=== PATIENT | female | born 1955 | race Caucasian/White ===

== ENCOUNTER 2017-08-09 13:05 | Inpatient (IN) | payer MEDICARE, MEDICAID ==
[~2017-08-09] VITALS: Ht 147.3 cm; Wt 74.4 kg
[~2017-08-09 13:05] MED LIST: ADVIR; BUSPIRONE; CELEXA; KLONOPIN; LIPITOR; PREMPRO; RELPAX; TOPAMAX; TYLENOL; [UNRECOGNIZED DRUG - OTHER]
[2017-08-09 13:32] VITALS: BP 125/92
[2017-08-09] MEDS ORDERED: HALOPERIDOL 5 MG TABLET PO PRN (13:45)
[2017-08-09] MEDS ORDERED: ZOLPIDEM TARTRATE 10 MG TABLET PO PRN (13:45)
[2017-08-09] MEDS ORDERED: OMEP20 PO (14:32)
[2017-08-09] MEDS ORDERED: LEVO75 PO (14:32)
[2017-08-09] MEDS ORDERED: WHEA1POW2 PO (14:32)
[2017-08-09] MEDS ORDERED: BUSP10TA23 PO (14:32)
[2017-08-09] MEDS ORDERED: BACL10TA PO (14:32)
[2017-08-09] MEDS ORDERED: FENO160 PO (14:32)
[2017-08-09] MEDS ORDERED: CLON.5 PO (14:32)
[2017-08-09] MEDS ORDERED: CITA20TA9 PO (14:32)
[2017-08-09] MEDS ORDERED: AMIT50TA3 PO (14:32)
[2017-08-09] MEDS ORDERED: DICY20 PO (14:32)
[2017-08-09 14:56] VITALS: BP 122/62
[2017-08-09 16:17] VITALS: BP 119/65
[2017-08-09] MEDS ORDERED: PNEUMOCOCCAL VACCINE POLYVALENT 0.5 ML VIAL [PPSV23] IM ONE (16:30)
[2017-08-09] MEDS: LORazepam 1 MG TABLET PO PRN (19:14)
[2017-08-09] MEDS ORDERED: MAGNESIUM HYDROXIDE SUSPENSION 30 ML UDCUP PO PRN (19:15)
[2017-08-09] MEDS ORDERED: MAG HYDROX/AL HYDROX/SIMETH ES 30 ML SUSPENSION UDCUP PO PRN (19:15)
[2017-08-09] MEDS ORDERED: CloNIDine HCL 0.1 MG TABLET PO PRN (19:15)
[2017-08-09] MEDS ORDERED: LOPERAMIDE HCL 2 MG CAPSULE PO PRN (19:15)
[2017-08-09] MEDS ORDERED: BACITRACIN 28.4 GM OINTMENT TP PRN (19:15)
[2017-08-09] MEDS ORDERED: PETROLATUM,WHITE 71 GM JELLY TP PRN (19:15)
[2017-08-09] MEDS ORDERED: ALBUTEROL SULFATE HFA 90 MCG/PUFF 8 GM INHALER IH PRN (19:15)
[2017-08-09] MEDS: ACETAMINOPHEN 325 MG TABLET PO PRN (19:48)
[2017-08-10] VITALS (7 sets, daily range): BP systolic 107–143; BP diastolic 61–77
[2017-08-10] MEDS ORDERED: LEVOTHYROXINE SODIUM 75 MCG TABLET PO SCH (06:30)
[2017-08-10] MEDS: OMEPRAZOLE 20 MG CAPSULE PO SCH (08:27)
[2017-08-10] MEDS: DICYCLOMINE HCL 20 MG TABLET PO SCH (08:27)
[2017-08-10] MEDS: BACLOFEN 10 MG TABLET PO SCH ×3 (08:27→16:31)
[2017-08-10] MEDS: FENOFIBRATE 160 MG TABLET PO SCH (08:27)
[2017-08-10] MEDS: LORazepam 1 MG TABLET PO PRN (08:47)
[2017-08-10] MEDS ORDERED: AMITRIPTYLINE HCL 50 MG TABLET PO SCH (09:00)
[2017-08-10 09:49] LABS: BASOPHILS % (AUTO) 0.3 % (0.0-2.0); EOSINOPHILS % (AUTO) 1.7 % (1.0-6.0); HEMATOCRIT 34.8 % (36-46); HEMOGLOBIN 12.3 g/dL (12.0-16.0); LYMPHOCYTES # (AUTO) 2.2 K/uL (1.0-4.8); MEAN CORPUSCULAR HEMOGLOBIN 35.6 pg (26.0-34.0); MEAN CORPUSCULAR HGB CONC 35.3 G/dL (31.0-37.0); MEAN CORPUSCULAR VOLUME 101 fL (80-100); MONOCYTES # (AUTO) 0.6 K/uL (0.1-1.0); MONOCYTES % (AUTO) 11.2 % (2.0-9.0); NEUTROPHILS # (AUTO) 2.6 K/uL (1.8-7.7); NEUTROPHILS % (AUTO) 46.8 % (40.0-70.0); PLATELET COUNT (AUTO) 314 K/uL (150-450); RED BLOOD CELL COUNT(AUTO) 3.46 MIL/uL (4.00-5.20); RED CELL DISTRIBUTION WIDTH 13.2 % (11.5-14.5)
[2017-08-10 09:59] LABS: HEMOGLOBIN A1C 5.4 % (4.5-6.2)
[2017-08-10 10:32] LABS: ALANINE AMINOTRANSFERASE 45 U/L (12-78); ALBUMIN 3.5 g/dL (3.4-5.0); ALKALINE PHOSPHATASE 85 U/L (46-116); ANION GAP 9 mmol/L (8-16); ASPARTATE AMINOTRANSFERASE 24 U/L (15-37); BILIRUBIN,TOTAL 0.2 mg/dL (0.1-1.0); CARBON DIOXIDE 26 mmol/L (22-29); CHLORIDE 103 mmol/L (98-107); CHOL/HDL RATIO 3.7 (3.9-5.7); CHOLESTEROL 180 mg/dL (131-200); CREATININE 0.68 mg/dL (0.60-1.30); FREE T4 (FREE THYROXINE) 0.92 ng/dL (0.76-1.46); GLOMERULAR FILTR. RATE CALC > 60 mL/min (>60); GLUCOSE,RANDOM 90 mg/dL (70-110); HDL CHOLESTEROL 49 mg/dL (40-60); LDL CHOL (CALC.) 107 mg/dL (0-130); POTASSIUM 3.9 mmol/L (3.5-5.1); SODIUM SERUM 138 mmol/L (136-145); THYROID STIMULATING HORMONE 1.97 uIU/mL (0.36-3.74); TOTAL PROTEIN, SERUM 7.3 g/dL (6.4-8.2); TRIGLYCERIDES 121 mg/dL (15-150); UREA NITROGEN, BLOOD 17 mg/dL (7-18)
[2017-08-10] MEDS: ACETAMINOPHEN 325 MG TABLET PO PRN ×2 (15:57→21:46)
[2017-08-10] MEDS: BusPIRone HCL 10 MG TABLET PO SCH (16:30)
[2017-08-10] MEDS: AMITRIPTYLINE HCL 50 MG TABLET PO SCH (21:37)
[2017-08-10] MEDS: ONDANSETRON HCL 4 MG TABLET PO PRN (21:46)
[2017-08-11] VITALS (7 sets, daily range): BP systolic 108–127; BP diastolic 64–73
[2017-08-11] MEDS: LEVOTHYROXINE SODIUM 25 MCG TABLET PO SCH (06:07)
[2017-08-11] MEDS: ACETAMINOPHEN 325 MG TABLET PO PRN ×2 (06:18→20:19)
[2017-08-11] MEDS: BusPIRone HCL 10 MG TABLET PO SCH ×3 (08:02→16:43)
[2017-08-11] MEDS: DICYCLOMINE HCL 20 MG TABLET PO SCH (08:03)
[2017-08-11] MEDS: OMEPRAZOLE 20 MG CAPSULE PO SCH (08:03)
[2017-08-11] MEDS: BACLOFEN 10 MG TABLET PO SCH ×4 (08:03→18:14)
[2017-08-11] MEDS: CITALOPRAM HYDROBROMIDE 20 MG TABLET PO SCH (08:03)
[2017-08-11] MEDS: FENOFIBRATE 160 MG TABLET PO SCH (08:03)
[2017-08-11] MEDS: IBUPROFEN 600 MG TABLET PO PRN ×2 (10:59→22:20)
[2017-08-11] MEDS: ONDANSETRON HCL 4 MG TABLET PO PRN (14:59)
[2017-08-11] MEDS: AMITRIPTYLINE HCL 50 MG TABLET PO SCH (20:37)
[2017-08-12] MEDS: LEVOTHYROXINE SODIUM 25 MCG TABLET PO SCH (05:51)
[2017-08-12] MEDS: LORazepam 1 MG TABLET PO PRN (05:52)
[2017-08-12 05:53] VITALS: BP 119/77
[2017-08-12] MEDS: OMEPRAZOLE 20 MG CAPSULE PO SCH (08:34)
[2017-08-12] MEDS: FENOFIBRATE 160 MG TABLET PO SCH (08:34)
[2017-08-12] MEDS: CITALOPRAM HYDROBROMIDE 20 MG TABLET PO SCH (08:34)
[2017-08-12] MEDS: DICYCLOMINE HCL 20 MG TABLET PO SCH (08:34)
[2017-08-12] MEDS: BusPIRone HCL 10 MG TABLET PO SCH ×3 (08:34→16:59)
[2017-08-12] MEDS: BACLOFEN 10 MG TABLET PO SCH ×3 (08:44→17:00)
[2017-08-12 08:54] VITALS: BP 132/73
[2017-08-12] MEDS: ACETAMINOPHEN 325 MG TABLET PO PRN (09:34)
[2017-08-12 11:32] VITALS: BP 126/72
[2017-08-12] MEDS: IBUPROFEN 600 MG TABLET PO PRN (11:32)
[2017-08-12] MEDS: ClonazePAM 0.5 MG TABLET PO SCH ×2 (12:38→16:59)
[2017-08-12 16:13] VITALS: BP 136/70
[2017-08-12] MEDS: AMITRIPTYLINE HCL 50 MG TABLET PO SCH (20:35)
[2017-08-13 06:11] VITALS: BP 114/62
[2017-08-13] MEDS: LEVOTHYROXINE SODIUM 25 MCG TABLET PO SCH (06:39)
[2017-08-13] MEDS: CITALOPRAM HYDROBROMIDE 20 MG TABLET PO SCH (08:12)
[2017-08-13] MEDS: OMEPRAZOLE 20 MG CAPSULE PO SCH (08:12)
[2017-08-13] MEDS: ClonazePAM 0.5 MG TABLET PO SCH ×3 (08:12→16:56)
[2017-08-13] MEDS: FENOFIBRATE 160 MG TABLET PO SCH (08:12)
[2017-08-13] MEDS: BusPIRone HCL 10 MG TABLET PO SCH ×3 (08:12→16:56)
[2017-08-13] MEDS: DICYCLOMINE HCL 20 MG TABLET PO SCH (08:12)
[2017-08-13] MEDS: BACLOFEN 10 MG TABLET PO SCH ×3 (08:16→16:58)
[2017-08-13 08:18] VITALS: BP 127/88
[2017-08-13] MEDS: ACETAMINOPHEN 325 MG TABLET PO PRN (08:18)
[2017-08-13 12:37] VITALS: BP 125/88
[2017-08-13] MEDS: IBUPROFEN 600 MG TABLET PO PRN (12:37)
[2017-08-13] MEDS ORDERED: SUMAtriptan SUCCINATE 25 MG TABLET PO PRN (16:00)
[2017-08-13 17:20] VITALS: BP 136/78
[2017-08-13] MEDS: AMITRIPTYLINE HCL 50 MG TABLET PO SCH (20:15)
[2017-08-14 00:07] VITALS: BP 120/86
[2017-08-14] MEDS: LEVOTHYROXINE SODIUM 25 MCG TABLET PO SCH (05:55)
[2017-08-14 08:24] VITALS: BP 118/69
[2017-08-14] MEDS: ClonazePAM 0.5 MG TABLET PO SCH ×3 (08:56→16:21)
[2017-08-14] MEDS: FENOFIBRATE 160 MG TABLET PO SCH (08:56)
[2017-08-14] MEDS: BACLOFEN 10 MG TABLET PO SCH ×3 (08:57→16:24)
[2017-08-14] MEDS: CITALOPRAM HYDROBROMIDE 20 MG TABLET PO SCH (08:57)
[2017-08-14] MEDS: DICYCLOMINE HCL 20 MG TABLET PO SCH (08:57)
[2017-08-14] MEDS: BusPIRone HCL 10 MG TABLET PO SCH ×3 (08:57→16:21)
[2017-08-14] MEDS: OMEPRAZOLE 20 MG CAPSULE PO SCH (08:57)
[2017-08-14 16:12] VITALS: BP 114/74
[2017-08-14] MEDS: AMITRIPTYLINE HCL 50 MG TABLET PO SCH (20:21)
[2017-08-14 20:28] VITALS: BP 118/72
[2017-08-15] VITALS: BP 105/62
[2017-08-15] MEDS: LEVOTHYROXINE SODIUM 25 MCG TABLET PO SCH (06:06)
[2017-08-15 08:43] VITALS: BP 124/64
[2017-08-15] MEDS: OMEPRAZOLE 20 MG CAPSULE PO SCH (10:07)
[2017-08-15] MEDS: CITALOPRAM HYDROBROMIDE 20 MG TABLET PO SCH (10:07)
[2017-08-15] MEDS: ClonazePAM 0.5 MG TABLET PO SCH ×3 (10:07→17:12)
[2017-08-15] MEDS: BusPIRone HCL 10 MG TABLET PO SCH ×3 (10:08→17:13)
[2017-08-15] MEDS: DICYCLOMINE HCL 20 MG TABLET PO SCH (10:09)
[2017-08-15] MEDS: FENOFIBRATE 160 MG TABLET PO SCH (10:09)
[2017-08-15] MEDS: BACLOFEN 10 MG TABLET PO SCH ×3 (10:09→17:13)
[2017-08-15 16:26] VITALS: BP 132/79
[2017-08-15] MEDS: AMITRIPTYLINE HCL 50 MG TABLET PO SCH (20:38)
[2017-08-15] MEDS: BENZOCAINE/MENTHOL LOZENGE MM PRN (20:39)
[2017-08-15] MEDS: ACETAMINOPHEN 325 MG TABLET PO PRN (20:39)
[2017-08-16 00:13] VITALS: BP 110/76
[2017-08-16] MEDS: LEVOTHYROXINE SODIUM 25 MCG TABLET PO SCH (06:15)
[2017-08-16] MEDS: BusPIRone HCL 10 MG TABLET PO SCH ×3 (08:17→17:07)
[2017-08-16] MEDS: ClonazePAM 0.5 MG TABLET PO SCH ×3 (08:17→17:07)
[2017-08-16] MEDS: CITALOPRAM HYDROBROMIDE 20 MG TABLET PO SCH (08:17)
[2017-08-16] MEDS: BACLOFEN 10 MG TABLET PO SCH ×3 (08:17→17:00)
[2017-08-16] MEDS: DICYCLOMINE HCL 20 MG TABLET PO SCH (08:17)
[2017-08-16] MEDS: OMEPRAZOLE 20 MG CAPSULE PO SCH (08:17)
[2017-08-16] MEDS: FENOFIBRATE 160 MG TABLET PO SCH (08:17)
[2017-08-16 08:41] VITALS: BP 121/60
[2017-08-16 16:14] VITALS: BP 142/72
[2017-08-16] MEDS: AMITRIPTYLINE HCL 50 MG TABLET PO SCH (20:25)
[2017-08-16] MEDS: BENZOCAINE/MENTHOL LOZENGE MM PRN (20:25)
[2017-08-17 01:21] VITALS: BP 104/62
[2017-08-17] MEDS: LEVOTHYROXINE SODIUM 25 MCG TABLET PO SCH (06:27)
[2017-08-17 08:00] VITALS: BP 109/63
[2017-08-17] MEDS: CITALOPRAM HYDROBROMIDE 20 MG TABLET PO SCH (08:37)
[2017-08-17] MEDS: DICYCLOMINE HCL 20 MG TABLET PO SCH (08:37)
[2017-08-17] MEDS: OMEPRAZOLE 20 MG CAPSULE PO SCH (08:37)
[2017-08-17] MEDS: FENOFIBRATE 160 MG TABLET PO SCH (08:37)
[2017-08-17] MEDS: BusPIRone HCL 10 MG TABLET PO SCH ×3 (08:37→16:38)
[2017-08-17] MEDS: ClonazePAM 0.5 MG TABLET PO SCH ×3 (08:37→16:38)
[2017-08-17] MEDS: BACLOFEN 10 MG TABLET PO SCH ×3 (08:40→16:38)
[2017-08-17] MEDS ORDERED: CLON.5 PO (16:17)
[2017-08-17] MEDS ORDERED: CITA40TA14 PO (16:17)
[2017-08-17] MEDS ORDERED: BUSP10TA23 PO (16:17)
[2017-08-17] MEDS ORDERED: AMIT100T2 PO (16:17)
[2017-08-17 16:29] VITALS: BP 134/73
[2017-08-17] MEDS ORDERED: LEVO25TA9 PO (16:35)
[2017-08-17] MEDS ORDERED: CLON0.5T4 PO (16:40)
== END 2017-08-17 18:24 | disposition home or self-care (01) | DRG 885 ==
LOC: B2X 13:46
PROC: 3E0234Z Introduction of Serum, Toxoid and Vaccine into Muscle, Percutaneous Approach (ICD-10-PCS; principal; 2017-08-09)
DX: F33.2 Major depressive disorder, recurrent severe without psychotic features (principal); R45.851 Suicidal ideations; E03.9 Hypothyroidism, unspecified; E66.9 Obesity, unspecified; E78.5 Hyperlipidemia, unspecified; F41.9 Anxiety disorder, unspecified; M54.5 Low back pain; G47.00 Insomnia, unspecified; R26.9 Unspecified abnormalities of gait and mobility; J44.9 Chronic obstructive pulmonary disease, unspecified; K21.9 Gastro-esophageal reflux disease without esophagitis; N95.1 Menopausal and female climacteric states; Z79.899 Other long term (current) drug therapy; Z85.038 Personal history of other malignant neoplasm of large intestine; Z91.5 Personal history of self-harm; Z68.34 Body mass index [BMI] 34.0-34.9, adult; Z23 Encounter for immunization; Z88.5 Allergy status to narcotic agent
CPT/HCPCS: 83036; 84439; 84443; 90471; Q0162

== ENCOUNTER 2017-08-10 17:05 | Emergency (ER) | payer MEDICARE, MEDICAID ==
[~2017-08-10] VITALS: Ht 147.3 cm; Wt 72.7 kg
[~2017-08-10 17:05] MED LIST changes: -ADVIR; +AMIT50TA3 PO; +BACL10TA PO; +BUSP10TA23 PO; -BUSPIRONE; -CELEXA; +CITA20TA9 PO; +CLON.5 PO; +DICY20 PO; +FENO160 PO; -KLONOPIN; +LEVO75 PO; -LIPITOR; +OMEP20 PO; -PREMPRO; -RELPAX; -TOPAMAX; -TYLENOL; +WHEA1POW2 PO; -[UNRECOGNIZED DRUG - OTHER]
[2017-08-10 18:06] LABS: BASOPHILS % (AUTO) 0.3 % (0.0-2.0); EOSINOPHILS % (AUTO) 0.5 % (1.0-6.0); HEMATOCRIT 36.3 % (36-46); HEMOGLOBIN 12.8 g/dL (12.0-16.0); LYMPHOCYTES # (AUTO) 2.3 K/uL (1.0-4.8); LYMPHOCYTES % (AUTO) 24.3 % (22.0-44.0); MEAN CORPUSCULAR HEMOGLOBIN 35.6 pg (26.0-34.0); MEAN CORPUSCULAR HGB CONC 35.3 G/dL (31.0-37.0); MEAN CORPUSCULAR VOLUME 101 fL (80-100); MONOCYTES # (AUTO) 0.6 K/uL (0.1-1.0); MONOCYTES % (AUTO) 6.1 % (2.0-9.0); NEUTROPHILS # (AUTO) 6.4 K/uL (1.8-7.7); NEUTROPHILS % (AUTO) 68.8 % (40.0-70.0); PLATELET COUNT (AUTO) 339 K/uL (150-450); RED CELL DISTRIBUTION WIDTH 12.9 % (11.5-14.5)
[2017-08-10 18:29] LABS: ANION GAP 8 mmol/L (8-16); CALCIUM, TOTAL 9.5 mg/dL (8.8-10.5); CARBON DIOXIDE 29 mmol/L (22-29); CHLORIDE 99 mmol/L (98-107); CREATININE 0.81 mg/dL (0.60-1.30); GLOMERULAR FILTR. RATE CALC > 60 mL/min (>60); GLUCOSE,RANDOM 122 mg/dL (70-110); POTASSIUM 4.4 mmol/L (3.5-5.1); SODIUM SERUM 136 mmol/L (136-145); UREA NITROGEN, BLOOD 16 mg/dL (7-18)
[2017-08-10 18:35] LABS: B-TYPE NATRIURETIC PEPTIDE 13 pg/mL (0-100)
[2017-08-10 18:36] LABS: ALANINE AMINOTRANSFERASE 45 U/L (12-78); ALBUMIN 4.1 g/dL (3.4-5.0); ALKALINE PHOSPHATASE 97 U/L (46-116); ASPARTATE AMINOTRANSFERASE 31 U/L (15-37); BILIRUBIN,TOTAL 0.2 mg/dL (0.1-1.0); CREATINE KINASE, TOTAL 39 U/L (26-192)
[2017-08-10 19:19] LABS: BILIRUBIN,URINE NEGATIVE (NEGATIVE); GLUCOSE, URINE (UA) NEGATIVE (NEGATIVE); KETONES,URINE NEGATIVE (NEGATIVE); LEUKOCYTE ESTERASE ,URINE SMALL (NEGATIVE); NITRATE,URINE NEGATIVE (NEGATIVE); OCCULT BLOOD,URINE MODERATE (NEGATIVE); PH,URINE 7.5 (5.0-8.0); PROTEIN,URINE NEGATIVE (NEGATIVE); UROBILINOGEN,URINE 0.2 mg/dL (<=1.0)
[2017-08-10 20:02] LABS: APPEARANCE,URINE HAZY (CLEAR)
[2017-08-10 20:05] LABS: BACTERIA,URINE Rare /HPF (None Seen); SQUAMOUS EPITHELIAL CELL,UR Moderate /LPF (None Seen)
[2017-08-10 20:15] VITALS: BP 138/83
== END 2017-08-10 21:13 | disposition home or self-care (01) ==
LOC: EMS 17:07
DX: S50.311A Abrasion of right elbow, initial encounter (principal); R42 Dizziness and giddiness; R11.2 Nausea with vomiting, unspecified; R51 Headache; M54.2 Cervicalgia; J45.909 Unspecified asthma, uncomplicated; K21.9 Gastro-esophageal reflux disease without esophagitis; E78.00 Pure hypercholesterolemia, unspecified; G43.909 Migraine, unspecified, not intractable, without status migrainosus; E03.9 Hypothyroidism, unspecified; Z88.5 Allergy status to narcotic agent; Z88.8 Allergy status to other drugs, medicaments and biological substances; W19.XXXA Unspecified fall, initial encounter; Y93.89 Activity, other specified; Y92.89 Other specified places as the place of occurrence of the external cause; Y99.8 Other external cause status
CPT/HCPCS: 87086; 93005; 99285

== ENCOUNTER 2017-09-12 15:14 | Inpatient (IN) | payer MEDICARE, MEDICAID ==
[~2017-09-12] VITALS: Ht 149.9 cm; Wt 74.0 kg
[~2017-09-12 15:14] MED LIST changes: +AMIT100T2 PO; +CITA-106 PO; -CITA20TA9 PO; +CITA40TA14 PO; +CLON0.5T4 PO; +LEVO25TA9 PO; -LEVO75 PO; -WHEA1POW2 PO
[2017-09-12 15:33] LABS: BASOPHILS % (AUTO) 0.4 % (0.0-2.0); EOSINOPHILS % (AUTO) 1.4 % (1.0-6.0); HEMATOCRIT 34.1 % (36-46); LYMPHOCYTES # (AUTO) 2.5 K/uL (1.0-4.8); LYMPHOCYTES % (AUTO) 43.6 % (22.0-44.0); MEAN CORPUSCULAR HEMOGLOBIN 35.3 pg (26.0-34.0); MEAN CORPUSCULAR VOLUME 101 fL (80-100); MONOCYTES # (AUTO) 0.6 K/uL (0.1-1.0); MONOCYTES % (AUTO) 10.6 % (2.0-9.0); NEUTROPHILS # (AUTO) 2.5 K/uL (1.8-7.7); PLATELET COUNT (AUTO) 319 K/uL (150-450); RED BLOOD CELL COUNT(AUTO) 3.39 MIL/uL (4.00-5.20); RED CELL DISTRIBUTION WIDTH 13.1 % (11.5-14.5)
[2017-09-12 15:45] LABS: ANION GAP 7 mmol/L (8-16); CALCIUM, TOTAL 9.2 mg/dL (8.8-10.5); CARBON DIOXIDE 29 mmol/L (22-29); CHLORIDE 104 mmol/L (98-107); GLOMERULAR FILTR. RATE CALC > 60 mL/min (>60); GLUCOSE,RANDOM 88 mg/dL (70-110); POTASSIUM 4.3 mmol/L (3.5-5.1); SODIUM SERUM 140 mmol/L (136-145); UREA NITROGEN, BLOOD 17 mg/dL (7-18)
[2017-09-12 15:52] LABS: ALANINE AMINOTRANSFERASE 42 U/L (12-78); ALBUMIN 3.7 g/dL (3.4-5.0); ALKALINE PHOSPHATASE 76 U/L (46-116); ASPARTATE AMINOTRANSFERASE 22 U/L (15-37); BILIRUBIN,TOTAL 0.4 mg/dL (0.1-1.0); TOTAL PROTEIN, SERUM 7.3 g/dL (6.4-8.2)
[2017-09-12 16:04] LABS: ACETAMINOPHEN < 2 mcg/mL (10-30)
[2017-09-12 16:09] LABS: SALICYLATE 0.8 mg/dL (2.8-20.0)
[2017-09-12] MEDS ORDERED: TUBERCULIN, PURIFIED PROTEIN DERIVATIVE 5 TU/0.1 ML SYG ID ONE (16:45)
[2017-09-12] MEDS ORDERED: GuaiFENesin/D-METHORPHAN [SUGAR-FREE] 200-20MG/10 ML SYRUP UDCUP PO PRN (16:45)
[2017-09-12] MEDS ORDERED: HydrOXYzine PAMOATE 50 MG CAPSULE PO PRN (16:45)
[2017-09-12] MEDS ORDERED: ACETAMINOPHEN 325 MG TABLET PO PRN (16:45)
[2017-09-12] MEDS ORDERED: HALOPERIDOL 5 MG TABLET PO PRN (16:45)
[2017-09-12] MEDS ORDERED: PROMETHAZINE HCL 25 MG TABLET PO PRN (16:45)
[2017-09-12] MEDS ORDERED: LORazepam 2 MG TABLET PO PRN (16:45)
[2017-09-12] MEDS ORDERED: MAG HYDROX/AL HYDROX/SIMETH ES 30 ML SUSPENSION UDCUP PO PRN (16:45)
[2017-09-12] MEDS ORDERED: MAGNESIUM HYDROXIDE SUSPENSION 30 ML UDCUP PO PRN (16:45)
[2017-09-12] MEDS ORDERED: LOPERAMIDE HCL 2 MG CAPSULE PO PRN (16:45)
[2017-09-12 20:15] VITALS: BP 110/68
[2017-09-12] MEDS: THIAMINE HCL 100 MG TABLET PO SCH (20:58)
[2017-09-12] MEDS: GABAPENTIN 400 MG CAPSULE PO SCH (20:58)
[2017-09-13] MEDS: LEVOTHYROXINE SODIUM 25 MCG TABLET PO SCH (06:11)
[2017-09-13 06:52] VITALS: BP 126/82
[2017-09-13 08:36] VITALS: BP 111/67
[2017-09-13 08:39] LABS: BASOPHILS % (AUTO) 0.2 % (0.0-2.0); EOSINOPHILS % (AUTO) 1.8 % (1.0-6.0); HEMATOCRIT 32.5 % (36-46); HEMOGLOBIN 11.9 g/dL (12.0-16.0); LYMPHOCYTES # (AUTO) 2.7 K/uL (1.0-4.8); LYMPHOCYTES % (AUTO) 49.3 % (22.0-44.0); MEAN CORPUSCULAR HEMOGLOBIN 37.1 pg (26.0-34.0); MEAN CORPUSCULAR HGB CONC 36.5 G/dL (31.0-37.0); MEAN CORPUSCULAR VOLUME 102 fL (80-100); MONOCYTES # (AUTO) 0.5 K/uL (0.1-1.0); MONOCYTES % (AUTO) 9.3 % (2.0-9.0); NEUTROPHILS # (AUTO) 2.2 K/uL (1.8-7.7); NEUTROPHILS % (AUTO) 39.4 % (40.0-70.0); PLATELET COUNT (AUTO) 314 K/uL (150-450); RED CELL DISTRIBUTION WIDTH 13.1 % (11.5-14.5)
[2017-09-13] MEDS ORDERED: DULoxetine HCL 20 MG CAPSULE PO SCH (09:00)
[2017-09-13 09:01] LABS: HEMOGLOBIN A1C 5.3 % (4.5-6.2)
[2017-09-13 09:12] LABS: ALANINE AMINOTRANSFERASE 39 U/L (12-78); ALBUMIN 3.5 g/dL (3.4-5.0); ALKALINE PHOSPHATASE 67 U/L (46-116); ANION GAP 6 mmol/L (8-16); ASPARTATE AMINOTRANSFERASE 23 U/L (15-37); BILIRUBIN,TOTAL 0.4 mg/dL (0.1-1.0); CALCIUM, TOTAL 8.9 mg/dL (8.8-10.5); CARBON DIOXIDE 30 mmol/L (22-29); CHLORIDE 103 mmol/L (98-107); CHOL/HDL RATIO 3.4 (3.9-5.7); CHOLESTEROL 171 mg/dL (131-200); CREATININE 0.76 mg/dL (0.60-1.30); FREE T4 (FREE THYROXINE) 0.97 ng/dL (0.76-1.46); GLOMERULAR FILTR. RATE CALC > 60 mL/min (>60); GLUCOSE,RANDOM 84 mg/dL (70-110); HDL CHOLESTEROL 51 mg/dL (40-60); LDL CHOL (CALC.) 102 mg/dL (0-130); POTASSIUM 3.9 mmol/L (3.5-5.1); SODIUM SERUM 139 mmol/L (136-145); THYROID STIMULATING HORMONE 1.08 uIU/mL (0.36-3.74); TOTAL PROTEIN, SERUM 6.9 g/dL (6.4-8.2); TRIGLYCERIDES 92 mg/dL (15-150); UREA NITROGEN, BLOOD 18 mg/dL (7-18)
[2017-09-13] MEDS: GABAPENTIN 400 MG CAPSULE PO SCH ×4 (11:10→20:54)
[2017-09-13] MEDS: OMEPRAZOLE 20 MG CAPSULE PO SCH (11:11)
[2017-09-13] MEDS: DICYCLOMINE HCL 20 MG TABLET PO SCH (11:11)
[2017-09-13] MEDS: THIAMINE HCL 100 MG TABLET PO SCH ×2 (11:11→17:05)
[2017-09-13] MEDS: FOLIC ACID 1 MG TABLET PO SCH (11:11)
[2017-09-13] MEDS: FENOFIBRATE 160 MG TABLET PO SCH (11:11)
[2017-09-13] MEDS: MULTIVITAMINS WITH MINERALS, THERAPEUTIC TABLET PO SCH (11:11)
[2017-09-13 16:10] VITALS: BP 110/80
[2017-09-13] MEDS: ClonazePAM 0.5 MG TABLET PO SCH (17:05)
[2017-09-13] MEDS: BusPIRone HCL 10 MG TABLET PO SCH (17:05)
[2017-09-13] MEDS: MIRTAZAPINE 15 MG TABLET PO SCH (20:54)
[2017-09-14] MEDS: LEVOTHYROXINE SODIUM 25 MCG TABLET PO SCH (06:26)
[2017-09-14 06:29] VITALS: BP 110/68
[2017-09-14 08:29] VITALS: BP 124/68
[2017-09-14] MEDS: MULTIVITAMINS WITH MINERALS, THERAPEUTIC TABLET PO SCH (08:49)
[2017-09-14] MEDS: OMEPRAZOLE 20 MG CAPSULE PO SCH (08:49)
[2017-09-14] MEDS: GABAPENTIN 400 MG CAPSULE PO SCH ×4 (08:49→20:32)
[2017-09-14] MEDS: ClonazePAM 0.5 MG TABLET PO SCH ×3 (08:49→17:11)
[2017-09-14] MEDS: DICYCLOMINE HCL 20 MG TABLET PO SCH (08:49)
[2017-09-14] MEDS: FENOFIBRATE 160 MG TABLET PO SCH (08:49)
[2017-09-14] MEDS: THIAMINE HCL 100 MG TABLET PO SCH ×2 (08:49→17:11)
[2017-09-14] MEDS: FOLIC ACID 1 MG TABLET PO SCH (08:50)
[2017-09-14] MEDS: BusPIRone HCL 10 MG TABLET PO SCH ×3 (08:50→17:11)
[2017-09-14] MEDS ORDERED: DULoxetine HCL 20 MG CAPSULE PO SCH (09:00)
[2017-09-14 16:04] VITALS: BP 115/61
[2017-09-14] MEDS: MIRTAZAPINE 15 MG TABLET PO SCH (20:32)
[2017-09-15 06:14] VITALS: BP 104/64
[2017-09-15] MEDS: LEVOTHYROXINE SODIUM 25 MCG TABLET PO SCH (06:28)
[2017-09-15] MEDS: FENOFIBRATE 160 MG TABLET PO SCH (08:40)
[2017-09-15] MEDS: OMEPRAZOLE 20 MG CAPSULE PO SCH (08:40)
[2017-09-15] MEDS: DICYCLOMINE HCL 20 MG TABLET PO SCH (08:41)
[2017-09-15] MEDS: DULoxetine HCL 30 MG CAPSULE PO SCH (08:41)
[2017-09-15] MEDS: FOLIC ACID 1 MG TABLET PO SCH (08:41)
[2017-09-15] MEDS: BusPIRone HCL 10 MG TABLET PO SCH ×3 (08:41→16:42)
[2017-09-15] MEDS: MULTIVITAMINS WITH MINERALS, THERAPEUTIC TABLET PO SCH (08:41)
[2017-09-15] MEDS: ClonazePAM 0.5 MG TABLET PO SCH ×2 (08:41→16:42)
[2017-09-15] MEDS: GABAPENTIN 400 MG CAPSULE PO SCH ×4 (08:41→20:52)
[2017-09-15] MEDS: THIAMINE HCL 100 MG TABLET PO SCH ×2 (08:41→16:42)
[2017-09-15 08:49] VITALS: BP 107/60
[2017-09-15] MEDS ORDERED: BUSP10TA23 PO (13:08)
[2017-09-15] MEDS ORDERED: CLON.5 PO (13:08)
[2017-09-15] MEDS ORDERED: GABA-533 PO (13:08)
[2017-09-15] MEDS ORDERED: MIRT15 PO (13:08)
[2017-09-15] MEDS ORDERED: DULO30CA2 PO (13:08)
[2017-09-15] MEDS ORDERED: LOPERAMIDE HCL 2 MG CAPSULE PO PRN (16:45)
[2017-09-15 16:46] VITALS: BP 130/79
[2017-09-15] MEDS: MIRTAZAPINE 15 MG TABLET PO SCH (20:52)
[2017-09-16] MEDS: LEVOTHYROXINE SODIUM 25 MCG TABLET PO SCH (06:08)
[2017-09-16 06:57] VITALS: BP 120/81
[2017-09-16] MEDS: FENOFIBRATE 160 MG TABLET PO SCH (08:06)
[2017-09-16] MEDS: MULTIVITAMINS WITH MINERALS, THERAPEUTIC TABLET PO SCH (08:06)
[2017-09-16] MEDS: THIAMINE HCL 100 MG TABLET PO SCH (08:06)
[2017-09-16] MEDS: OMEPRAZOLE 20 MG CAPSULE PO SCH (08:06)
[2017-09-16] MEDS: FOLIC ACID 1 MG TABLET PO SCH (08:06)
[2017-09-16] MEDS: GABAPENTIN 400 MG CAPSULE PO SCH (08:06)
[2017-09-16] MEDS: DICYCLOMINE HCL 20 MG TABLET PO SCH (08:07)
[2017-09-16] MEDS: DULoxetine HCL 30 MG CAPSULE PO SCH (08:07)
[2017-09-16] MEDS: BusPIRone HCL 10 MG TABLET PO SCH (08:07)
[2017-09-16] MEDS: ClonazePAM 0.5 MG TABLET PO SCH (08:07)
[2017-09-16] MEDS ORDERED: FOLI1 PO (08:37)
[2017-09-16 08:43] VITALS: BP 140/68
[2017-09-16 09:41] LABS: % IRON SATURATION 24.2 % (22-44)
== END 2017-09-16 10:00 | disposition home or self-care (01) | DRG 885 ==
LOC: EMS 15:17 → B2X 16:30
PROVIDERS: ADMIT Psychiatry & Neurology Psychiatry; ATTEND Psychiatry & Neurology Psychiatry
DX: F33.2 Major depressive disorder, recurrent severe without psychotic features (principal); R45.851 Suicidal ideations; Z91.19 Patient's noncompliance with other medical treatment and regimen; T42.4X2A Poisoning by benzodiazepines, intentional self-harm, initial encounter; E03.9 Hypothyroidism, unspecified; E66.9 Obesity, unspecified; E78.00 Pure hypercholesterolemia, unspecified; E78.5 Hyperlipidemia, unspecified; F41.9 Anxiety disorder, unspecified; G43.909 Migraine, unspecified, not intractable, without status migrainosus; G47.00 Insomnia, unspecified; J45.909 Unspecified asthma, uncomplicated; K21.9 Gastro-esophageal reflux disease without esophagitis; Z65.3 Problems related to other legal circumstances; Z88.8 Allergy status to other drugs, medicaments and biological substances; Z79.899 Other long term (current) drug therapy; Z85.42 Personal history of malignant neoplasm of other parts of uterus; Y92.89 Other specified places as the place of occurrence of the external cause; Z68.32 Body mass index [BMI] 32.0-32.9, adult
CPT/HCPCS: 71046; 83036; 83540; 83550; 84439; 84443; 93005; 99285; G0480; G0481

== ENCOUNTER 2018-10-02 13:11 | Inpatient (IN) | payer MEDICARE, MEDICAID ==
[~2018-10-02] VITALS: Ht 147.3 cm; Wt 79.3 kg
[~2018-10-02 13:11] MED LIST changes: -AMIT100T2 PO; -AMIT50TA3 PO; +AMOX1TAB14 PO; -BACL10TA PO; -CITA-106 PO; -CITA40TA14 PO; -CLON0.5T4 PO; +CLOT15CR71; +DULO30CA2 PO; +FOLI1 PO; +GABA-533 PO; +MIRT15 PO; +[UNRECOGNIZED DRUG - CODE] PO
[2018-10-02] MEDS ORDERED: TUBERCULIN, PURIFIED PROTEIN DERIVATIVE 5 TU/0.1 ML SYRINGE ID ONE (14:15)
[2018-10-02] MEDS ORDERED: GuaiFENesin/D-METHORPHAN [SUGAR-FREE] 200-20MG/10 ML SYRUP UDCUP PO PRN (14:15)
[2018-10-02] MEDS ORDERED: LOPERAMIDE HCL 2 MG CAPSULE PO PRN (14:15)
[2018-10-02] MEDS ORDERED: MAG HYDROX/AL HYDROX/SIMETH ES 30 ML SUSPENSION UDCUP PO PRN (14:15)
[2018-10-02] MEDS ORDERED: QUEtiapine FUMARATE 100 MG TABLET PO PRN (14:15)
[2018-10-02] MEDS ORDERED: LORazepam 2 MG TABLET PO PRN (14:15)
[2018-10-02] MEDS ORDERED: PROMETHAZINE HCL 25 MG TABLET PO PRN (14:15)
[2018-10-02] MEDS ORDERED: HydrOXYzine PAMOATE 50 MG CAPSULE PO PRN (14:15)
[2018-10-02] MEDS ORDERED: ZOLPIDEM TARTRATE 10 MG TABLET PO PRN (14:15)
[2018-10-02] MEDS ORDERED: MAGNESIUM HYDROXIDE SUSPENSION 30 ML UDCUP PO PRN (14:15)
[2018-10-02 14:51] VITALS: BP 142/80
[2018-10-02 15:03] VITALS: BP 153/88
[2018-10-02 16:03] VITALS: BP 137/71
[2018-10-02 16:09] VITALS: BP 137/71
[2018-10-02] MEDS ORDERED: BUSP15 PO (16:17)
[2018-10-02] MEDS ORDERED: DULO30CA2 PO (16:17)
[2018-10-02] MEDS ORDERED: CLON.5 PO (16:17)
[2018-10-02] MEDS ORDERED: GABA-533 PO (16:17)
[2018-10-02] MEDS ORDERED: MIRT15 PO (16:17)
[2018-10-02] MEDS: ClonazePAM 0.5 MG TABLET PO SCH ×2 (17:00→18:37)
[2018-10-02] MEDS: BusPIRone HCL 15 MG TABLET PO SCH (18:36)
[2018-10-02] MEDS: THIAMINE HCL 100 MG TABLET PO SCH (18:36)
[2018-10-02] MEDS: GABAPENTIN 400 MG CAPSULE PO SCH ×2 (18:37→20:21)
[2018-10-02] MEDS: MIRTAZAPINE 15 MG TABLET PO SCH (20:21)
[2018-10-03 06:07] VITALS: BP 122/68
[2018-10-03] MEDS: ACETAMINOPHEN 325 MG TABLET PO PRN ×2 (06:13→13:49)
[2018-10-03] MEDS ORDERED: LEVOTHYROXINE SODIUM 25 MCG TABLET PO SCH (06:30)
[2018-10-03 08:21] LABS: BASOPHILS % (AUTO) 0.3 % (0.0-2.0); EOSINOPHILS % (AUTO) 2.2 % (1.0-6.0); HEMATOCRIT 34.5 % (36-46); HEMOGLOBIN 11.7 g/dL (12.0-16.0); LYMPHOCYTES # (AUTO) 2.6 K/uL (1.0-4.8); LYMPHOCYTES % (AUTO) 40.1 % (22.0-44.0); MEAN CORPUSCULAR HEMOGLOBIN 34.5 pg (26.0-34.0); MEAN CORPUSCULAR HGB CONC 33.9 G/dL (31.0-37.0); MEAN CORPUSCULAR VOLUME 102 fL (80-100); MONOCYTES # (AUTO) 0.6 K/uL (0.1-1.0); NEUTROPHILS % (AUTO) 47.4 % (40.0-70.0); PLATELET COUNT (AUTO) 320 K/uL (150-450); RED BLOOD CELL COUNT(AUTO) 3.39 MIL/uL (4.00-5.20); RED CELL DISTRIBUTION WIDTH 12.9 % (11.5-14.5)
[2018-10-03 08:30] LABS: HEMOGLOBIN A1C 5.6 % (4.5-6.2)
[2018-10-03] MEDS ORDERED: CYANOCOBALAMIN 1,000 MCG/ML VIAL IM ONE (08:30)
[2018-10-03] MEDS: BusPIRone HCL 15 MG TABLET PO SCH ×2 (08:32→16:28)
[2018-10-03] MEDS: DICYCLOMINE HCL 20 MG TABLET PO SCH (08:32)
[2018-10-03] MEDS: GABAPENTIN 400 MG CAPSULE PO SCH ×4 (08:33→20:47)
[2018-10-03] MEDS: DULoxetine HCL 30 MG CAPSULE PO SCH (08:33)
[2018-10-03] MEDS: FOLIC ACID 1 MG TABLET PO SCH (08:33)
[2018-10-03] MEDS: MULTIVITAMINS WITH MINERALS, THERAPEUTIC TABLET PO SCH (08:33)
[2018-10-03] MEDS: OMEPRAZOLE 20 MG CAPSULE PO SCH (08:33)
[2018-10-03] MEDS: PARoxetine HCL 20 MG TABLET PO SCH (08:33)
[2018-10-03] MEDS: THIAMINE HCL 100 MG TABLET PO SCH ×2 (08:34→16:27)
[2018-10-03] MEDS: FENOFIBRATE 160 MG TABLET PO SCH (08:34)
[2018-10-03 08:35] VITALS: BP 135/87
[2018-10-03] MEDS: ClonazePAM 0.5 MG TABLET PO SCH ×3 (08:35→16:27)
[2018-10-03 08:57] LABS: ALANINE AMINOTRANSFERASE 50 U/L (12-78); ALBUMIN 3.2 g/dL (3.4-5.0); ALKALINE PHOSPHATASE 91 U/L (46-116); ANION GAP 5 mmol/L (8-16); ASPARTATE AMINOTRANSFERASE 37 U/L (15-37); BILIRUBIN,TOTAL 0.3 mg/dL (0.1-1.0); CALCIUM, TOTAL 9.1 mg/dL (8.8-10.5); CARBON DIOXIDE 32 mmol/L (22-29); CHLORIDE 107 mmol/L (98-107); CHOLESTEROL 176 mg/dL (131-200); CREATININE 0.72 mg/dL (0.60-1.30); FREE T4 (FREE THYROXINE) 0.98 ng/dL (0.76-1.46); GLOMERULAR FILTR. RATE CALC > 60 mL/min (>60); GLUCOSE,RANDOM 92 mg/dL (70-110); HDL CHOLESTEROL 44 mg/dL (40-60); LDL CHOL (CALC.) 114 mg/dL (0-130); POTASSIUM 4.5 mmol/L (3.5-5.1); SODIUM SERUM 144 mmol/L (136-145); THYROID STIMULATING HORMONE 1.56 uIU/mL (0.36-3.74); TRIGLYCERIDES 90 mg/dL (15-150); UREA NITROGEN, BLOOD 9 mg/dL (7-18)
[2018-10-03 13:52] VITALS: BP 138/81
[2018-10-03 16:15] VITALS: BP 128/70
[2018-10-03] MEDS: MIRTAZAPINE 15 MG TABLET PO SCH (20:47)
[2018-10-04 06:34] VITALS: BP 136/90
[2018-10-04] MEDS: LEVOTHYROXINE SODIUM 75 MCG TABLET PO SCH (07:12)
[2018-10-04 08:28] VITALS: BP 138/83
[2018-10-04] MEDS: ACETAMINOPHEN 325 MG TABLET PO PRN ×2 (08:59→13:23)
[2018-10-04] MEDS: DICYCLOMINE HCL 20 MG TABLET PO SCH (08:59)
[2018-10-04] MEDS: FENOFIBRATE 160 MG TABLET PO SCH (09:00)
[2018-10-04] MEDS: AMOX TR/POT CLAV 875 MG/125 MG TABLET PO SCH (09:00)
[2018-10-04] MEDS: MULTIVITAMINS WITH MINERALS, THERAPEUTIC TABLET PO SCH (09:00)
[2018-10-04] MEDS: ClonazePAM 0.5 MG TABLET PO SCH ×3 (09:00→16:24)
[2018-10-04] MEDS: BusPIRone HCL 15 MG TABLET PO SCH ×2 (09:00→16:25)
[2018-10-04] MEDS: THIAMINE HCL 100 MG TABLET PO SCH ×2 (09:00→16:24)
[2018-10-04] MEDS: FOLIC ACID 1 MG TABLET PO SCH (09:00)
[2018-10-04] MEDS: DULoxetine HCL 30 MG CAPSULE PO SCH (09:00)
[2018-10-04] MEDS: OMEPRAZOLE 20 MG CAPSULE PO SCH (09:00)
[2018-10-04] MEDS: GABAPENTIN 400 MG CAPSULE PO SCH ×4 (09:00→20:20)
[2018-10-04] MEDS: PARoxetine HCL 20 MG TABLET PO SCH (09:01)
[2018-10-04 13:18] VITALS: BP 141/74
[2018-10-04 16:15] VITALS: BP 124/72
[2018-10-04] MEDS: MIRTAZAPINE 15 MG TABLET PO SCH (20:19)
[2018-10-05 06:03] VITALS: BP 118/70
[2018-10-05] MEDS: LEVOTHYROXINE SODIUM 75 MCG TABLET PO SCH (07:05)
[2018-10-05 08:46] VITALS: BP 136/77
[2018-10-05] MEDS: PARoxetine HCL 20 MG TABLET PO SCH (08:53)
[2018-10-05] MEDS: THIAMINE HCL 100 MG TABLET PO SCH ×2 (08:53→16:38)
[2018-10-05] MEDS: DICYCLOMINE HCL 20 MG TABLET PO SCH (08:53)
[2018-10-05] MEDS: AMOX TR/POT CLAV 875 MG/125 MG TABLET PO SCH (08:53)
[2018-10-05] MEDS: OMEPRAZOLE 20 MG CAPSULE PO SCH (08:53)
[2018-10-05] MEDS: FOLIC ACID 1 MG TABLET PO SCH (08:53)
[2018-10-05] MEDS: MULTIVITAMINS WITH MINERALS, THERAPEUTIC TABLET PO SCH (08:53)
[2018-10-05] MEDS: FENOFIBRATE 160 MG TABLET PO SCH (08:53)
[2018-10-05] MEDS: BusPIRone HCL 15 MG TABLET PO SCH ×2 (08:53→16:38)
[2018-10-05] MEDS: DULoxetine HCL 30 MG CAPSULE PO SCH (08:53)
[2018-10-05] MEDS: GABAPENTIN 400 MG CAPSULE PO SCH ×4 (08:53→20:40)
[2018-10-05] MEDS: ClonazePAM 0.5 MG TABLET PO SCH ×3 (08:54→16:38)
[2018-10-05] MEDS ORDERED: CLON.5 PO (12:11)
[2018-10-05] MEDS ORDERED: GABA-533 PO (12:11)
[2018-10-05] MEDS ORDERED: BUSP15 PO (12:11)
[2018-10-05] MEDS ORDERED: PARO-37 PO (12:11)
[2018-10-05] MEDS ORDERED: MIRT15 PO (12:11)
[2018-10-05] MEDS ORDERED: DULO30CA2 PO (12:11)
[2018-10-05 13:15] VITALS: BP 127/74
[2018-10-05] MEDS: ACETAMINOPHEN 325 MG TABLET PO PRN (13:21)
[2018-10-05 16:16] VITALS: BP 126/71
[2018-10-05] MEDS: MIRTAZAPINE 15 MG TABLET PO SCH (20:41)
[2018-10-06 00:39] VITALS: BP 104/62
[2018-10-06] MEDS: LEVOTHYROXINE SODIUM 75 MCG TABLET PO SCH (06:59)
[2018-10-06 08:20] VITALS: BP 142/63
[2018-10-06] MEDS ORDERED: DULO30CA2 PO (08:23)
[2018-10-06] MEDS ORDERED: MIRT15 PO (08:23)
[2018-10-06] MEDS ORDERED: AMOX1TAB16 PO (08:23)
[2018-10-06] MEDS ORDERED: DICY20 PO (08:23)
[2018-10-06] MEDS ORDERED: FENO160 PO (08:23)
[2018-10-06] MEDS ORDERED: LEVO75TA10 PO (08:23)
[2018-10-06] MEDS ORDERED: PARO20TA24 PO (08:23)
[2018-10-06] MEDS ORDERED: BUSP15 PO (08:23)
[2018-10-06] MEDS ORDERED: GABA-533 PO (08:23)
[2018-10-06] MEDS ORDERED: CLON.5 PO (08:23)
[2018-10-06] MEDS: ClonazePAM 0.5 MG TABLET PO SCH ×3 (09:09→16:39)
[2018-10-06] MEDS: BusPIRone HCL 15 MG TABLET PO SCH ×2 (09:09→16:39)
[2018-10-06] MEDS: DICYCLOMINE HCL 20 MG TABLET PO SCH (09:09)
[2018-10-06] MEDS: THIAMINE HCL 100 MG TABLET PO SCH ×2 (09:09→16:39)
[2018-10-06] MEDS: PARoxetine HCL 20 MG TABLET PO SCH (09:09)
[2018-10-06] MEDS: GABAPENTIN 400 MG CAPSULE PO SCH ×3 (09:09→16:39)
[2018-10-06] MEDS: MULTIVITAMINS WITH MINERALS, THERAPEUTIC TABLET PO SCH (09:09)
[2018-10-06] MEDS: OMEPRAZOLE 20 MG CAPSULE PO SCH (09:09)
[2018-10-06] MEDS: DULoxetine HCL 30 MG CAPSULE PO SCH (09:09)
[2018-10-06] MEDS: AMOX TR/POT CLAV 875 MG/125 MG TABLET PO SCH (09:09)
[2018-10-06] MEDS: FENOFIBRATE 160 MG TABLET PO SCH (09:09)
[2018-10-06] MEDS: FOLIC ACID 1 MG TABLET PO SCH (09:09)
[2018-10-06 16:20] VITALS: BP 139/84
== END 2018-10-06 17:20 | disposition home or self-care (01) | DRG 885 ==
LOC: B2X 14:13
PROVIDERS: ADMIT Psychiatry & Neurology Psychiatry; ATTEND Psychiatry & Neurology Psychiatry
DX: F33.9 Major depressive disorder, recurrent, unspecified (principal); R45.851 Suicidal ideations; Z59.0 Homelessness; Z65.3 Problems related to other legal circumstances; E03.9 Hypothyroidism, unspecified; E78.00 Pure hypercholesterolemia, unspecified; E78.5 Hyperlipidemia, unspecified; F41.9 Anxiety disorder, unspecified; G47.00 Insomnia, unspecified; J44.9 Chronic obstructive pulmonary disease, unspecified; K21.9 Gastro-esophageal reflux disease without esophagitis; Z79.899 Other long term (current) drug therapy; Z85.038 Personal history of other malignant neoplasm of large intestine; Z91.19 Patient's noncompliance with other medical treatment and regimen; G43.909 Migraine, unspecified, not intractable, without status migrainosus
CPT/HCPCS: 83036; 84439; 84443; 86592; 93005; J3420

== ENCOUNTER 2019-11-17 18:05 | Inpatient (IN) | payer MEDICARE, MEDICAID ==
[~2019-11-17] VITALS: Ht 147.3 cm; Wt 82.1 kg
[~2019-11-17 18:05] MED LIST changes: -AMOX1TAB14 PO; +AMOX1TAB16 PO; -BUSP10TA23 PO; +BUSP15 PO; -CLOT15CR71; -DULO30CA2 PO; +DULO30CA96 PO; -FENO160 PO; +FENO160T41 PO; -FOLI1 PO; +GABA-1201 PO; -LEVO25TA9 PO; +LEVO75TA10 PO; +MIRT-89 PO; -MIRT15 PO; -OMEP20 PO; +PARO-37 PO; +PARO20TA24 PO; -[UNRECOGNIZED DRUG - CODE] PO
[2019-11-17] MEDS ORDERED: ChlorproMAZINE HCL 100 MG TABLET PO PRN (18:30)
[2019-11-17] MEDS ORDERED: ZOLPIDEM TARTRATE 5 MG TABLET PO PRN (18:30)
[2019-11-17 19:00] VITALS: BP 117/56
[2019-11-17 20:07] VITALS: BP 136/83
[2019-11-17] MEDS: ClonazePAM 0.5 MG TABLET PO SCH (20:47)
[2019-11-17] MEDS: BusPIRone HCL 15 MG TABLET PO SCH (20:47)
[2019-11-17] MEDS: MIRTAZAPINE 15 MG TABLET PO SCH (20:47)
[2019-11-17] MEDS: GABAPENTIN 400 MG CAPSULE PO SCH (20:47)
[2019-11-18 05:35] VITALS: BP 100/61
[2019-11-18] MEDS: HydrOXYzine PAMOATE 50 MG CAPSULE PO PRN (06:29)
[2019-11-18 06:52] LABS: BASOPHILS % (AUTO) 0.7 % (0.0-2.0); EOSINOPHILS % (AUTO) 2.6 % (1.0-6.0); HEMATOCRIT 33.5 % (36-46); HEMOGLOBIN 11.4 g/dL (12.0-16.0); LYMPHOCYTES # (AUTO) 2.4 K/uL (1.0-4.8); LYMPHOCYTES % (AUTO) 37.7 % (22.0-44.0); MEAN CORPUSCULAR HEMOGLOBIN 33.8 pg (26.0-34.0); MEAN CORPUSCULAR VOLUME 100 fL (80-100); MONOCYTES # (AUTO) 0.6 K/uL (0.1-1.0); MONOCYTES % (AUTO) 10.1 % (2.0-9.0); NEUTROPHILS # (AUTO) 3.1 K/uL (1.8-7.7); NEUTROPHILS % (AUTO) 48.9 % (40.0-70.0); PLATELET COUNT (AUTO) 268 K/uL (150-450); RED BLOOD CELL COUNT(AUTO) 3.37 MIL/uL (4.00-5.20); RED CELL DISTRIBUTION WIDTH 13.6 % (11.5-14.5)
[2019-11-18 07:31] LABS: HEMOGLOBIN A1C 5.7 % (3.8-5.6)
[2019-11-18 07:38] LABS: ALANINE AMINOTRANSFERASE 72 U/L (12-78); ALBUMIN 3.2 g/dL (3.4-5.0); ALKALINE PHOSPHATASE 88 U/L (46-116); ANION GAP 9 mmol/L (8-16); ASPARTATE AMINOTRANSFERASE 48 U/L (15-37); BILIRUBIN,TOTAL 0.2 mg/dL (0.1-1.0); CALCIUM, TOTAL 8.8 mg/dL (8.8-10.5); CARBON DIOXIDE 29 mmol/L (22-29); CHLORIDE 106 mmol/L (98-107); CHOL/HDL RATIO 3.8 (3.9-5.7); CHOLESTEROL 175 mg/dL (131-200); CREATININE 0.82 mg/dL (0.60-1.30); FREE T4 (FREE THYROXINE) 0.98 ng/dL (0.76-1.46); GLOMERULAR FILTR. RATE CALC > 60 mL/min (>60); GLUCOSE,RANDOM 99 mg/dL (70-110); HDL CHOLESTEROL 46 mg/dL (40-60); LDL CHOL (CALC.) 107 mg/dL (0-130); POTASSIUM 4.3 mmol/L (3.5-5.1); SODIUM SERUM 144 mmol/L (136-145); THYROID STIMULATING HORMONE 0.62 uIU/mL (0.36-3.74); TOTAL PROTEIN, SERUM 6.6 g/dL (6.4-8.2); TRIGLYCERIDES 109 mg/dL (15-150); UREA NITROGEN, BLOOD 14 mg/dL (7-18)
[2019-11-18 08:46] VITALS: BP 128/67
[2019-11-18] MEDS ORDERED: DULoxetine HCL 60 MG CAPSULE PO SCH (09:00)
[2019-11-18] MEDS: GABAPENTIN 400 MG CAPSULE PO SCH ×4 (09:30→20:40)
[2019-11-18] MEDS: BusPIRone HCL 15 MG TABLET PO SCH ×2 (09:30→16:39)
[2019-11-18] MEDS: ClonazePAM 0.5 MG TABLET PO SCH ×2 (09:31→16:39)
[2019-11-18] MEDS ORDERED: RIZATRIPTAN BENZOATE 10 MG TABLET PO ONE (11:00)
[2019-11-18 11:23] VITALS: BP 125/70
[2019-11-18] MEDS: ACETAMINOPHEN 325 MG TABLET PO PRN (11:23)
[2019-11-18] MEDS: ONDANSETRON HCL 4 MG TABLET PO SCH ×2 (11:30→18:47)
[2019-11-18] MEDS ORDERED: RIZATRIPTAN BENZOATE 10 MG TABLET PO PRN (11:45)
[2019-11-18] MEDS: DICYCLOMINE HCL 20 MG TABLET PO SCH (16:16)
[2019-11-18 16:42] VITALS: BP 135/94
[2019-11-18] MEDS: MIRTAZAPINE 15 MG TABLET PO SCH (20:40)
[2019-11-18] MEDS ORDERED: SERTRALINE HCL 100 MG TABLET PO SCH (21:00)
[2019-11-19 01:20] VITALS: BP 139/75
[2019-11-19] MEDS: ONDANSETRON HCL 4 MG TABLET PO SCH ×6 (01:21→23:54)
[2019-11-19] MEDS: ACETAMINOPHEN 325 MG TABLET PO PRN ×2 (01:22→13:27)
[2019-11-19] MEDS: HydrOXYzine PAMOATE 50 MG CAPSULE PO PRN ×3 (01:22→23:55)
[2019-11-19] MEDS: LEVOTHYROXINE SODIUM 75 MCG TABLET PO SCH (06:41)
[2019-11-19 07:47] LABS: APPEARANCE,URINE CLEAR (CLEAR); BILIRUBIN,URINE NEGATIVE (NEGATIVE); GLUCOSE, URINE (UA) NEGATIVE (NEGATIVE); KETONES,URINE NEGATIVE (NEGATIVE); LEUKOCYTE ESTERASE ,URINE TRACE (NEGATIVE); NITRATE,URINE NEGATIVE (NEGATIVE); OCCULT BLOOD,URINE MODERATE (NEGATIVE); PROTEIN,URINE NEGATIVE (NEGATIVE); UROBILINOGEN,URINE 0.2 mg/dL (<=1.0)
[2019-11-19 07:53] LABS: AMPHET/METH SCREEN,URINE NEGATIVE (NEGATIVE); BARBITURATE SCREEN, URINE NEGATIVE (NEGATIVE); BENZODIAZEPINES SCREEN,URINE POSITIVE (NEGATIVE); CANNABINOID SCREEN,URINE NEGATIVE (NEGATIVE); COCAINE SCREEN,URINE NEGATIVE (NEGATIVE); METHADONE SCREEN, URINE NEGATIVE (NEGATIVE); OPIATE SCREEN,URINE NEGATIVE (NEGATIVE); PHENCYCLIDINE SCREEN,URINE NEGATIVE (NEGATIVE)
[2019-11-19 08:25] LABS: BACTERIA,URINE None Seen /HPF (None Seen); RBC,URINE 0-2 /HPF (0-2); SQUAMOUS EPITHELIAL CELL,UR Few /LPF (None Seen); WBC,URINE 0-2 /HPF (0-5)
[2019-11-19] MEDS: ClonazePAM 0.5 MG TABLET PO SCH ×2 (08:48→16:31)
[2019-11-19] MEDS: BusPIRone HCL 15 MG TABLET PO SCH ×2 (08:48→16:31)
[2019-11-19] MEDS: FENOFIBRATE 160 MG TABLET PO SCH (08:48)
[2019-11-19] MEDS: GABAPENTIN 400 MG CAPSULE PO SCH ×3 (08:48→16:31)
[2019-11-19] MEDS: DICYCLOMINE HCL 20 MG TABLET PO SCH (08:48)
[2019-11-19] MEDS ORDERED: SERTRALINE HCL 50 MG TABLET PO SCH (09:00)
[2019-11-19 09:16] VITALS: BP 134/88
[2019-11-19 13:27] VITALS: BP 136/84
[2019-11-19 16:23] VITALS: BP 153/84
[2019-11-19] MEDS ORDERED: QUEtiapine FUMARATE 25 MG TABLET PO PRN (18:00)
[2019-11-19 19:00] VITALS: BP 146/71
[2019-11-19] MEDS: MIRTAZAPINE 15 MG TABLET PO SCH (20:35)
[2019-11-20 00:50] VITALS: BP 146/79
[2019-11-20] MEDS: LEVOTHYROXINE SODIUM 75 MCG TABLET PO SCH (06:49)
[2019-11-20] MEDS: ONDANSETRON HCL 4 MG TABLET PO SCH ×3 (06:49→18:02)
[2019-11-20 08:54] VITALS: BP 135/81
[2019-11-20] MEDS ORDERED: ClonazePAM 0.5 MG TABLET PO SCH (09:00)
[2019-11-20] MEDS: DICYCLOMINE HCL 20 MG TABLET PO SCH (09:07)
[2019-11-20] MEDS: FENOFIBRATE 160 MG TABLET PO SCH (09:07)
[2019-11-20] MEDS: NITROFURANTOIN/NITROFURAN MAC 100 MG CAPSULE [MACROBID] PO SCH ×2 (09:08→16:34)
[2019-11-20] MEDS: BusPIRone HCL 15 MG TABLET PO SCH ×2 (09:08→16:35)
[2019-11-20] MEDS ORDERED: ClonazePAM 1 MG TABLET PO ONE (14:30)
[2019-11-20 16:26] VITALS: BP 151/88
[2019-11-20] MEDS: GABAPENTIN 300 MG CAPSULE PO SCH ×2 (16:35→20:35)
[2019-11-20 18:39] VITALS: BP 108/60
[2019-11-20] MEDS: ACETAMINOPHEN 325 MG TABLET PO PRN (18:39)
[2019-11-20] MEDS: ClonazePAM 1 MG TABLET PO SCH (19:16)
[2019-11-20] MEDS: MIRTAZAPINE 15 MG TABLET PO SCH (20:35)
[2019-11-21 05:20] VITALS: BP 106/68
[2019-11-21] MEDS: LEVOTHYROXINE SODIUM 75 MCG TABLET PO SCH (06:54)
[2019-11-21] MEDS: ONDANSETRON HCL 4 MG TABLET PO SCH ×4 (06:54→18:07)
[2019-11-21 08:07] VITALS: BP 128/63
[2019-11-21] MEDS: GABAPENTIN 300 MG CAPSULE PO SCH ×4 (08:58→20:45)
[2019-11-21] MEDS: FENOFIBRATE 160 MG TABLET PO SCH (08:58)
[2019-11-21] MEDS: SERTRALINE HCL 50 MG TABLET PO SCH (08:58)
[2019-11-21] MEDS: BusPIRone HCL 15 MG TABLET PO SCH ×2 (08:58→16:56)
[2019-11-21] MEDS: NITROFURANTOIN/NITROFURAN MAC 100 MG CAPSULE [MACROBID] PO SCH ×2 (08:59→16:56)
[2019-11-21] MEDS: ClonazePAM 1 MG TABLET PO SCH ×2 (08:59→16:56)
[2019-11-21] MEDS: DICYCLOMINE HCL 20 MG TABLET PO SCH (09:04)
[2019-11-21] MEDS ORDERED: BENZOCAINE/MENTHOL LOZENGE PO PRN (16:15)
[2019-11-21 16:25] VITALS: BP 145/88
[2019-11-21] MEDS: MIRTAZAPINE 15 MG TABLET PO SCH (20:45)
[2019-11-22 06:12] VITALS: BP 109/65
[2019-11-22] MEDS: ONDANSETRON HCL 4 MG TABLET PO SCH ×4 (06:45→18:43)
[2019-11-22] MEDS: LEVOTHYROXINE SODIUM 75 MCG TABLET PO SCH (06:45)
[2019-11-22 08:10] VITALS: BP 116/68
[2019-11-22] MEDS: FENOFIBRATE 160 MG TABLET PO SCH (09:02)
[2019-11-22] MEDS: NITROFURANTOIN/NITROFURAN MAC 100 MG CAPSULE [MACROBID] PO SCH ×2 (09:02→16:35)
[2019-11-22] MEDS: BusPIRone HCL 15 MG TABLET PO SCH ×2 (09:02→16:34)
[2019-11-22] MEDS: ClonazePAM 1 MG TABLET PO SCH ×2 (09:02→16:35)
[2019-11-22] MEDS: SERTRALINE HCL 50 MG TABLET PO SCH (09:03)
[2019-11-22] MEDS: GABAPENTIN 300 MG CAPSULE PO SCH ×4 (09:03→20:41)
[2019-11-22] MEDS: DICYCLOMINE HCL 20 MG TABLET PO SCH (09:03)
[2019-11-22] MEDS: DOCUSATE SODIUM 250 MG CAPSULE PO SCH ×2 (09:50→16:34)
[2019-11-22] MEDS ORDERED: MIRT-89 PO (15:35)
[2019-11-22] MEDS ORDERED: CLON1TAB12 PO (15:35)
[2019-11-22] MEDS ORDERED: BUSP15 PO (15:35)
[2019-11-22] MEDS ORDERED: SERT50TA12 PO (15:35)
[2019-11-22] MEDS ORDERED: GABA-1181 PO (15:35)
[2019-11-22 16:23] VITALS: BP 112/62
[2019-11-22] MEDS: MIRTAZAPINE 15 MG TABLET PO SCH (20:41)
[2019-11-22] MEDS ORDERED: FLUTICASONE/VILANTEROL 200-25 MCG/INH INHALER [14] IH SCH (21:00)
[2019-11-23 00:58] VITALS: BP 102/62
[2019-11-23] MEDS: ONDANSETRON HCL 4 MG TABLET PO SCH ×2 (05:58)
[2019-11-23] MEDS: LEVOTHYROXINE SODIUM 75 MCG TABLET PO SCH (06:01)
[2019-11-23] MEDS: SERTRALINE HCL 50 MG TABLET PO SCH (08:32)
[2019-11-23] MEDS: GABAPENTIN 300 MG CAPSULE PO SCH (08:32)
[2019-11-23] MEDS: BusPIRone HCL 15 MG TABLET PO SCH (08:32)
[2019-11-23] MEDS: DOCUSATE SODIUM 250 MG CAPSULE PO SCH (08:32)
[2019-11-23] MEDS: ClonazePAM 1 MG TABLET PO SCH (08:32)
[2019-11-23 08:33] VITALS: BP 112/63
[2019-11-23] MEDS: NITROFURANTOIN/NITROFURAN MAC 100 MG CAPSULE [MACROBID] PO SCH (08:33)
[2019-11-23] MEDS: FENOFIBRATE 160 MG TABLET PO SCH (08:33)
[2019-11-23] MEDS: DICYCLOMINE HCL 20 MG TABLET PO SCH (08:33)
[2019-11-23] MEDS ORDERED: MACR100 PO (09:05)
[2019-11-23] MEDS ORDERED: DICY20 PO (09:05)
[2019-11-23] MEDS ORDERED: ONDA-104 PO (09:05)
[2019-11-23] MEDS ORDERED: FLUT1BLS IH (09:06)
== END 2019-11-23 15:05 | disposition home or self-care (01) | DRG 885 ==
LOC: B2X 18:36
PROVIDERS: ADMIT Psychiatry & Neurology Psychiatry; ATTEND Psychiatry & Neurology Psychiatry
DX: F25.1 Schizoaffective disorder, depressive type (principal); R45.851 Suicidal ideations; F33.2 Major depressive disorder, recurrent severe without psychotic features; Z91.19 Patient's noncompliance with other medical treatment and regimen; Z91.14 Patient's other noncompliance with medication regimen; K59.09 Other constipation; K21.9 Gastro-esophageal reflux disease without esophagitis; Z85.038 Personal history of other malignant neoplasm of large intestine; E78.5 Hyperlipidemia, unspecified; Z88.8 Allergy status to other drugs, medicaments and biological substances; Z79.899 Other long term (current) drug therapy; F41.9 Anxiety disorder, unspecified
CPT/HCPCS: 80307; 83036; 84439; 84443; Q0162